=== PATIENT | male | born 1985 | race Hispanic/Latino ===

== ENCOUNTER 2016-12-26 18:08 | Emergency (ER) | payer MEDICAID, OTHER ==
[2016-12-26 18:09] VITALS: BMI 23.0
[2016-12-26 18:22] VITALS: RESP 18; TEMP 98.1
--- NOTE | 2016-12-26 18:39 | C.PDOC ---
History Of Present Illness 31 y/o male presents to ED for medical clearance. 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 His boss made him come to ED for evaluation. Pt denies any pain, limitation of movement or any other complaints. He is requesting a work note. Time Seen by Provider: 12/26/16 18:34 Chief Complaint (Nursing): Upper Extremity Problem/Injury History Per: Patient History/Exam Limitations: no limitations Severity: None Recent travel outside of the [place]: No Past Medical History Reviewed: Historical Data, Nursing Documentation, Vital Signs Vital Signs: Last Vital Signs Temp 98.1 F 12/26/16 18:20 Pulse 72 12/26/16 18:52 Resp 18 12/26/16 18:52 BP 110/70 12/26/16 18:52 Pulse Ox 98 12/26/16 19:46 Family History: States: Unknown Family Hx - Social History Hx Tobacco Use: Yes Hx Alcohol Use: Yes Hx Substance Use: No - Immunization History Hx Tetanus Toxoid Vaccination: Yes Hx Influenza Vaccination: No Hx Pneumococcal Vaccination: No Review Of Systems Musculoskeletal: Negative for: Arm Pain Neurological: Negative for: Weakness, Numbness Physical Exam - Physical Exam Appears: Non-toxic, No Acute Distress Skin: Warm, Dry, No Rash, No Ecchymosis Head: Atraumatic, Normacephalic Eye(s): bilateral: Normal Inspection Extremity: Normal ROM, No Tenderness, Capillary Refill (<2 seconds), No Deformity, No Swelling Pulses: Right Radial: Normal Neurological/Psych: Oriented x3, Normal Speech ED Course And Treatment O2 Sat by Pulse Oximetry: 98 (room air) Pulse Ox Interpretation: Normal Medical Decision Making Medical Decision Making: Impression: Right forearm injury Plan: * Motrin and XRay- patient refused Progress: Patient does not want Xray states he knows arm is not broken, he states his boss made him come to ED for evaluation. Patient just wants carol wrap and note to go back to work. Disposition Counseled Patient/Family Regarding: Diagnosis, Need For Followup - Disposition Referrals: [employer] [Outside] Almaz Teresa MD [Staff Provider] - Disposition: HOME/ ROUTINE Disposition Time: 18:39 Condition: STABLE Additional Instructions: Please take Motrin or Tylenol for any pain as needed every 6-8 hours May return to work Follow up with primary doctor or clinic if pain persists over one week Instructions: Contusion in Adults (DC) Forms: Work Excuse - POA Present On Arrival: None - Clinical Impression Clinical Impression: Contusion of forearm - 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 - Scribe Statement The provider has reviewed the documentation as recorded by the Sha Whitaker All medical record entries made by the Jennifferibmarry were at my direction and personally dictated by me. I have reviewed the chart and agree that the record accurately reflects my personal performance of the history, physical exam, medical decision making, and the department course for this patient. I have also personally directed, reviewed, and agree with the discharge instructions and disposition.
[2016-12-26 18:53] VITALS: BP 110/70; PULSE 72
[2016-12-26 19:44] VITALS: O2SAT 98
== END 2016-12-26 18:53 | disposition home or self-care (01) ==
LOC: C.ER 18:08
DX: S50.11XA Contusion of right forearm, initial encounter (principal); W20.8XXA Other cause of strike by thrown, projected or falling object, initial encounter; Y99.0 Civilian activity done for income or pay

== ENCOUNTER 2017-04-11 19:02 | Emergency (ER) | payer MEDICAID, OTHER ==
[2017-04-11 19:05] VITALS: BMI 24.4
[2017-04-11 19:07] VITALS: BP 135/78; RESP 18
--- NOTE | 2017-04-11 19:29 | C.PDOC ---
History Of Present Illness 32yo male, with no past medical history, presents to the ED for evaluation of cough, cold, bodyaches and subjective fever present for the past 2 days. Patient reports greenish phlegm today; denies any chest pain, shortness of breath, known sick contacts or recent travels. Patient offers no other medical complaints. Time Seen by Provider: 04/11/17 19:17 Chief Complaint (Nursing): Cough, Cold, Congestion History Per: Patient History/Exam Limitations: no limitations Onset/Duration Of Symptoms: Days Current Symptoms Are (Timing): Still Present Associated Symptoms: Fever (subjective) Past Medical History Reviewed: Historical Data, Nursing Documentation, Vital Signs Vital Signs: Last Vital Signs Temp 98.3 F 04/11/17 19:33 Pulse 79 04/11/17 19:33 Resp 18 04/11/17 19:33 BP 135/78 04/11/17 19:06 Pulse Ox 98 04/11/17 19:46 - Medical History PMH: No Chronic Diseases Surgical History: No Surg Hx Family History: States: No Known Family Hx, Unknown Family Hx - Social History Hx Tobacco Use: Yes Hx Alcohol Use: Yes Hx Substance Use: No - Immunization History Hx Tetanus Toxoid Vaccination: Yes Hx Influenza Vaccination: No Hx Pneumococcal Vaccination: No Review Of Systems Constitutional: Positive for: Fever (subjective) Cardiovascular: Negative for: Chest Pain Respiratory: Positive for: Cough, Sputum (green). Negative for: Shortness of Breath Physical Exam - Physical Exam Appears: Non-toxic, No Acute Distress Skin: Warm, Dry Eye(s): bilateral: Normal Inspection Throat: Normal, No Erythema, No Exudate Neck: Normal ROM, Supple Cardiovascular: Rhythm Regular Respiratory: Normal Breath Sounds, No Rhonchi, No Stridor, No Wheezing Neurological/Psych: Oriented x3 Gait: Steady ED Course And Treatment O2 Sat by Pulse Oximetry: 98 (RA) Pulse Ox Interpretation: Normal Progress Note: Pt appears well, stable in NAD, VSS. Will follow up Disposition Counseled Patient/Family Regarding: Diagnosis, Need For Followup, Rx Given - Disposition Referrals: Clinic,Med Surg [Primary Care Provider] - [facility] [Outside] Disposition: HOME/ ROUTINE Disposition Time: 19:26 Condition: STABLE Additional Instructions: Increase PO fluids Take meds as directed Bed rest Return to ER if worse Prescriptions: Benzonatate [Tessalon Perles] 100 mg PO TID #20 sgl Cetirizine HCl [Zyrtec] 10 mg PO DAILY #20 capsule Instructions: Upper Respiratory Infection (ED) Forms: [facility] (Malay), Work Excuse - Clinical Impression Clinical Impression: Upper respiratory infection - 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 - Scribe Statement The provider has reviewed the documentation as recorded by the Sha Garza Provider Attestation All medical record entries made by the Sha were at my direction and personally dictated by me. I have reviewed the chart and agree that the record accurately reflects my personal performance of the history, physical exam, medical decision making, and the department course for this patient. I have also personally directed, reviewed, and agree with the discharge instructions and disposition.
[2017-04-11 19:34] VITALS: PULSE 79; TEMP 98.3
[2017-04-11 19:43] VITALS: O2SAT 98
== END 2017-04-11 19:41 | disposition home or self-care (01) ==
LOC: C.ER 19:02 → SUPCPDRO 19:02 → C.ER 19:41
DX: J06.9 Acute upper respiratory infection, unspecified (principal); F17.210 Nicotine dependence, cigarettes, uncomplicated

== ENCOUNTER 2017-12-15 13:52 | Emergency (ER) | payer MEDICAID ==
[2017-12-15 13:52] VITALS: BMI 24.4
[2017-12-15 14:02] VITALS: BP 110/58; PULSE 80; RESP 16; TEMP 98.2; O2SAT 97
--- NOTE | 2017-12-15 14:53 | RAD ---
PROCEDURE: Right Knee Radiographs. HISTORY: RIGHT KNEE PAIN COMPARISON: None. FINDINGS: BONES: Normal. No fracture. JOINTS: Normal. No osteoarthritis. JOINT EFFUSION: Small suprapatellar joint effusion OTHER FINDINGS: None. IMPRESSION: Normal radiographs of the right knee.
[2017-12-15] MEDS ORDERED: Naproxen 550 mg Tab PO STA (15:15)
--- NOTE | 2017-12-15 15:18 | C.PDOC ---
History Of Present Illness 32 y/o male presents to the ER complaining of right knee pain since yesterday. States he was at work and bent down to lift an object, when he felt a popping sensation in the right knee. Reports hx of fracture in the right knee as a child. Patient denies any direct trauma or fall, sensory changes, rash, fever. Time Seen by Provider: 12/15/17 14:06 Chief Complaint (Nursing): Lower Extremity Problem/Injury History Per: Patient History/Exam Limitations: no limitations Onset/Duration Of Symptoms: Days Current Symptoms Are (Timing): Still Present Severity: Mild Past Medical History Reviewed: Historical Data, Nursing Documentation, Vital Signs Vital Signs: Last Vital Signs Temp 98.2 F 12/15/17 13:59 Pulse 80 12/15/17 13:59 Resp 16 12/15/17 13:59 BP 110/58 L 12/15/17 13:59 Pulse Ox 97 12/15/17 17:00 - Medical History PMH: Fractures (R knee during childhood) Surgical History: Hernia Repair Family History: States: No Known Family Hx - Social History Hx Tobacco Use: Yes Hx Alcohol Use: Yes Hx Substance Use: No - Immunization History Hx Tetanus Toxoid Vaccination: Yes Hx Influenza Vaccination: No Hx Pneumococcal Vaccination: No Review Of Systems Constitutional: Negative for: Fever, Chills Musculoskeletal: Positive for: Leg Pain (right knee pain) Skin: Negative for: Lesions, Bruising Neurological: Negative for: Weakness, Numbness Physical Exam - Physical Exam Appears: Well, Non-toxic, No Acute Distress Skin: Normal Color, Warm, Dry, No Rash Eye(s): bilateral: Normal Inspection Oral Mucosa: Moist Neck: Supple Cardiovascular: Rhythm Regular Respiratory: Normal Breath Sounds, No Rales, No Rhonchi, No Wheezing Extremity: Normal ROM (with intact ROM of right knee), Tenderness (mild TTP around the right patella), No Calf Tenderness (or calf swelling), Capillary Refill (< 2 sec all digits ), No Deformity, Swelling (mild swelling to right knee), Other (+ anterior drawer test) Pulses: Left Dorsalis Pedis: Normal, Right Dorsalis Pedis: Normal Neurological/Psych: Oriented x3, Normal Sensation ED Course And Treatment O2 Sat by Pulse Oximetry: 97 (RA) Pulse Ox Interpretation: Normal - Other Rad x-ray right knee X-Ray: Viewed By Me, Read By Radiologist Interpretation: FINDINGS: BONES: Normal. No fracture. JOINTS: Normal. No osteoarthritis. JOINT EFFUSION: Small suprapatellar joint effusion. OTHER FINDINGS: None. IMPRESSION: Normal radiographs of the right knee. Progress Note: Patient given PO Naprosyn. Xrays of right knee ordered and reviewed - negative for acute fx/dislocation. Right knee brace applied by technical applications specialist. Patient given rx for pain medication and instructed to follow up with orthopedics within 1 week. He understands he should return to ED if symptoms worsen. Reevaluation Time: 15:20 Reassessment Condition: Improved Disposition Counseled Patient/Family Regarding: Studies Performed, Diagnosis, Need For Followup, Rx Given - Disposition Referrals: Mike Buchanan MD [Staff Provider] - Almaz Teresa MD [Staff Provider] - [facility] [Outside] Disposition: HOME/ ROUTINE Disposition Time: 15:20 Condition: STABLE Additional Instructions: FOLLOW UP WITH ORTHOPEDICS WITHI 1 WEEK USE MEDICATION NEEDED RETURN TO ER IF SYMPTOMS WORSEN Prescriptions: Naproxen 375 mg PO BID PRN #20 tablet PRN Reason: pain Instructions: Knee Sprain (DC), Ligament Injuries in the Knee (DC) Forms: [facility] (Cape Verdean), Work Excuse Print Language: BERMUDIAN - POA Present On Arrival: None - Clinical Impression Clinical Impression: Soft tissue injury of right knee - Scribe Statement The provider has reviewed the documentation as recorded by the Scribe (Deysi Tejada) Provider Attestation: All medical record entries made by the Scribe were at my direction and personally dictated by me. I have reviewed the chart and agree that the record accurately reflects my personal performance of the history, physical exam, medical decision making, and the department course for this patient. I have also personally directed, reviewed, and agree with the discharge instructions and disposition.
[2017-12-15] MEDS ORDERED: Naproxen 550 mg Tab PO ONE (15:22)
== END 2017-12-15 15:40 | disposition home or self-care (01) ==
LOC: C.ER 13:52
DX: S89.91XA Unspecified injury of right lower leg, initial encounter (principal); X50.1XXA Overexertion from prolonged static or awkward postures, initial encounter; Y92.89 Other specified places as the place of occurrence of the external cause; Y99.0 Civilian activity done for income or pay